=== PATIENT | female | born 1995 | race Caucasian/White ===

== ENCOUNTER 2021-07-22 18:57 | Emergency (ER) | payer OTHER | END 2021-07-22 22:16 | disposition home or self-care (01) | LOC: CSHERS 18:57 | DX: O02.1 Missed abortion (principal); Z3A.10 10 weeks gestation of pregnancy; Z79.899 Other long term (current) drug therapy | CPT/HCPCS: 76815 ==

== ENCOUNTER 2021-07-23 14:54 | Inpatient (IN) | payer OTHER ==
[2021-07-23] MEDS ORDERED: Diphenoxylate HCl/Atropine Tablet PO PRN ×2 (14:59)
[2021-07-23] MEDS ORDERED: Methylergonovine 0.2 MG/ML VIAL IM PRN (14:59)
[2021-07-23] MEDS ORDERED: Ondansetron PF 4 MG/2 ML Vial IVP PRN (14:59)
[2021-07-23] MEDS ORDERED: Lidocaine 1% (PF) 30 ML VIAL SC PRN (14:59)
[2021-07-23] MEDS ORDERED: hydrALAZINE 20 MG/ML VIAL SLOW IVP PRN (14:59)
[2021-07-23] MEDS ORDERED: HYDROcodone/Acetaminophen 5/325 mg Tablet PO PRN ×2 (14:59)
[2021-07-23] MEDS ORDERED: Misoprostol 200 MCG TAB PR PRN (14:59)
[2021-07-23] MEDS ORDERED: Promethazine HCl 25 MG/ML VIAL IM PRN (14:59)
[2021-07-23] MEDS ORDERED: Carboprost 250 MCG/ML AMP IM PRN (14:59)
[2021-07-23] MEDS ORDERED: Acetaminophen 500 MG TAB PO PRN (14:59)
[2021-07-23] MEDS ORDERED: Butorphanol Tartrate 1 MG/ML VIAL SLOW IVP PRN (14:59)
[2021-07-23] MEDS ORDERED: Ibuprofen 800 MG TAB PO PRN (14:59)
[2021-07-23] MEDS ORDERED: NS w/ Oxytocin 30 units 500 ML IV SCH (15:00)
[2021-07-23] MEDS ORDERED: Lactated Ringer's 1,000 ML IV SCH (15:00)
[2021-07-23] MEDS ORDERED: Misoprostol 100 MCG TAB VAG ONE (15:07)
[2021-07-23 15:19] VITALS: BMI 24.4
[2021-07-23 16:13] LABS: Hemoglobin 13.5 g/dL (12.0-15.5); Mean Corpuscular HGB CONC 35.4 g/dL (32.0-36.0); Mean Corpuscular Hemoglobin 28.9 pg (27.0-33.0); Mean Corpuscular Volume 81.6 fl (81.6-98.3); Mean Platelet Volume 9.9 fl (7.4-10.4); Platelet Count 270 10x3/uL (150-450); Red Blood Cell (RBC) Count 4.67 10x6/uL (3.90-5.03); White Blood Cell (WBC) Count 11.8 10x3/uL (3.5-10.5)
[2021-07-23 16:50] LABS: Hep B Surf Ag Non-Reactive S/CO (NonReactive); Syphilis Antibody Nonreactive (Nonreactive); Syphilis Antibody Index 0.03 S/CO (<1.00 Non-Reactive)
[2021-07-23 16:52] LABS: HBSAg Index 0.21 S/CO (0-0.99)
[2021-07-23] MEDS ORDERED: Misoprostol 100 MCG TAB VAG SCH (18:00)
== END 2021-07-23 23:00 | disposition home or self-care (01) | DRG 779 ==
LOC: CSHLD 14:54
PROVIDERS: ADMIT Obstetrics & Gynecology; ATTEND Obstetrics & Gynecology
PROC: 10D17Z9 Manual Extraction of Products of Conception, Retained, Via Natural or Artificial Opening (ICD-10-PCS; principal; 2021-07-23)
PROC: 3E0P7VZ Introduction of Hormone into Female Reproductive, Via Natural or Artificial Opening (ICD-10-PCS; 2021-07-23)
DX: O02.1 Missed abortion (principal); Z79.899 Other long term (current) drug therapy; Z88.6 Allergy status to analgesic agent; Z3A.16 16 weeks gestation of pregnancy
CPT/HCPCS: 36415; 85027; 86780; 86850; 86900; 86901; 87340